=== PATIENT | female | born 1955 | race Two or more races ===

== ENCOUNTER 2021-08-25 18:20 | Emergency (ER) | payer SELFPAY ==
[~2021-08-25] VITALS: Ht 154.9 cm; Wt 83.8 kg
[~2021-08-25 18:20] MED LIST: OMEP20TA63 PO
[2021-08-25] MEDS ORDERED: IV NORMAL SALINE 1000ML BAG 1,000 ML IV SCH (18:45)
[2021-08-25] MEDS ORDERED: ONDANSETRON PF 4 MG/2 ML VIAL. IVP ONE (19:00)
[2021-08-25] MEDS ORDERED: fentaNYL PF VIAL 100 MCG/2 ML VIAL IVP ONE (19:00)
[2021-08-25] MEDS ORDERED: FAMOTIDINE 20 MG/2 ML VIAL IVP ONE (19:00)
--- NOTE | 2021-08-25 19:10 | PHYS DOC ---
Past Medical History Past Medical History: High Cholesterol, Hypertension Past Surgical History: No Surgical History Smoking Status: Never Smoker Alcohol Use: None General Adult EDM: Chief Complaint: ABDOMINAL PAIN HPI: HPI: Patient is a 65 year old female with history of hypertension, high cholesterol, who presents the ED today complaining of 8 out of 10 right upper quadrant abdominal pain intermittently for 6 months. Patient states she has been evaluat ed before for this pain at [facility] and was told she has stones. 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 Reports occasional nausea and vomiting. Reports being on some medicine for UTI which she has been taking for months (Macrodantin). Denies any fever. Denies any back pain. Denies any chest pain or shortness of breath. States the pain is worse when she is ambulating. Review of Systems: Review of Systems: Constitutional: Denies fever or chills. [] Eyes: Denies change in visual acuity. [] HENT: Denies nasal congestion or sore throat. [] Respiratory: Denies cough or shortness of breath. [] Cardiovascular: Denies chest pain or edema. [] GI: Reports right upper quadrant abdominal pain with intermittent episodes of nausea and vomiting, denies bloody stools or diarrhea. [] : Denies dysuria. [] Musculoskeletal: Denies back pain or joint pain. [] Integument: Denies rash. [] Neurologic: Denies headache, focal weakness or sensory changes. [] ] Psychiatric: Denies depression or anxiety. [] Heart Score: C/O Chest Pain: N/A Risk Factors: Risk Factors: DM, Current or recent (<one month) smoker, HTN, HLP, family history of CAD, obesity. Risk Scores: Score 0 - 3: 2.5% MACE over next 6 weeks - Discharge Home Score 4 - 6: 20.3% MACE over next 6 weeks - Admit for Clinical Observation Score 7 - 10: 72.7% MACE over next 6 weeks - Early Invasive Strategies Current Medications: Current Medications Medications (Trade) Dose Ordered Sig/Price Start Time Stop Time Status Last Admin Dose Admin Famotidine (Pepcid Vial) 20 mg 1X ONCE 08/25/21 19:00 08/25/21 19:03 DC Fentanyl Citrate (Fentanyl 2ml Vial) 50 mcg 1X ONCE 08/25/21 19:00 08/25/21 19:03 DC Ondansetron HCl (Zofran) 4 mg 1X ONCE 08/25/21 19:00 08/25/21 19:03 DC Sodium Chloride 1,000 ml @ 1,000 mls/hr Q1H 08/25/21 18:45 08/25/21 18:42 DC Allergies: Allergies: Allergies Coded Allergies Type Severity Reaction Last Updated Verified No Known Drug Allergies 02/01/21 No Physical Exam: PE: Constitutional: Well developed, well nourished, no acute distress, non-toxic appearance. [] HENT: Normocephalic, atraumatic, bilateral external ears normal, oropharynx moist, no oral exudates, nose normal. [] Eyes: PERRLA, EOMI, conjunctiva normal, no discharge. [] Neck: Normal range of motion, no tenderness, supple, no stridor. [] Cardiovascular:Heart rate regular rhythm, no murmur [] Lungs & Thorax: Bilateral breath sounds clear to auscultation [] Abdomen: Bowel sounds normal, soft, mild right upper quadrant tenderness with negative Weston sign, no right lower quadrant tenderness, no masses, no pulsatile masses. [] Skin: Warm, dry, no erythema, no rash. [] Back: No tenderness, no CVA tenderness. [] Extremities: No tenderness, no cyanosis, no clubbing, ROM intact, no edema. [] Neurologic: Alert and oriented X 3, normal motor function, normal sensory function, no focal deficits noted. [] Psychologic: Affect normal, judgement normal, mood normal. [] EKG: EKG: [] Radiology/Procedures: Radiology/Procedures: []PROCEDURE: ABDOMEN LTD STUDY: US ABDOMEN LIMITED INDICATION: Right upper quadrant pain. COMPARISON: Same day CT.. TECHNIQUE: Limited abdominal ultrasound targeted at the right upper quadrant. Findings: Postprandial configuration the gallbladder which limits assessment. Possible gallstones but potentially artifact. Within normal limits size and echogenicity of the liver measuring 15.7 cm longitudinal. Limited evaluation of the pancreas secondary to bowel gas. Within normal limits common duct at 0.4 cm. The right kidney measures 9.2 cm in length. No hydronephrosis. Patent main portal vein with normal flow direction. Unremarkable IVC at the liver. Impression: 1. Incompletely assessed gallbladder secondary to a postprandial state with luminal collapse. There may be gallstones but difficult to confirm. Nondilated common duct. 2. Within normal limits liver and right kidney. Limited assessment of the pancreas secondary to bowel gas. Electronically signed by: DAKOTA BIRMINGHAM MD (08/25/2021 8:11 PM) [facility] DICTATED and SIGNED BY: DAKOTA BIRMINGHAM MD DATE: 08/25/[id number] 0 PROCEDURE: CT ABDOMEN PELVIS WO CONTRAST Exam: CT of abdomen and pelvis without contrast INDICATION: Right upper quadrant pain TECHNIQUE: Sequential axial images through the abdomen and pelvis obtained without IV contrast. Sagittal and coronal reformatted images were reconstructed from the axial data and reviewed. Exposure: One or more of the following in the visualized dose reduction techniques were utilized for this examination: 1. Automated exposure control 2. Adjustment of the MA and/or KV according to patient size 3. Use of iterative of reconstructive technique Comparisons: 02/01/2021 FINDINGS: Heart size is normal. No pericardial visualized lung bases are clear. Visualized lung bases are clear. No pleural effusion. Evaluation of solid organs limited secondary to noncontrast technique. Liver, spleen, pancreas and adrenals are unremarkable. Gallbladder is decompressed. No perinephric inflammation or hydronephrosis. No renal or ureteral calculi are identified. Bladder is partially distended and not well evaluated. Uterus is not enlarged. No abnormal adnexal mass. Moderate amount stool is noted throughout the colon. Appendix is normal. No free abdominal air or fluid. No obstruction. Abdominal aorta has normal course and caliber. No enlarged intra-abdominal lymph nodes are identified. No suspicious osseous lesions or acute fractures. IMPRESSION: No acute process identified within the abdomen or pelvis. Electronically signed by: Kaleigh Barraza MD (08/25/2021 7:47 PM) [facility]ablox[facility]andra DICTATED and SIGNED BY: KALEIGH BARRAZA MD DATE: 08/25/[id number] 0 Course & Med Decision Making: Course & Med Decision Making Pertinent Labs and Imaging studies reviewed. (See chart for details) This is a 65-year-old female patient presenting to the ED today with right upper quadrant abdominal pain with intermittent episodes of nausea and vomiting, symptoms for 6 months. CBC, CMP with no acute findings, UA noted for trace amount of leukocytes, 5-10 WBCs, no nitrites patient states she is on Macrodantin for UTI. CT of the abdomen and pelvis was noted for possible gallstones. Provided general surgery for follow-up. Discharged home Maryanne Disclaimer: Maryanne Disclaimer: This electronic medical record was generated, in whole or in part, using a voice recognition dictation system. Departure Departure Impression: Primary Impression: Cholelithiasis Qualified Codes: K80.20 - Calculus of gallbladder without cholecystitis without obstruction Disposition: HOME / SELF CARE / HOMELESS Condition: STABLE Referrals: UNKNOWN PCP NAME (PCP) MAULIK GOULD MD Please call his office tomorrow and set up a follow-up appointment in the clinic Patient Instructions: Cholelithiasis, [id number] Additional Instructions: You were evaluated in the emergency room and noted to have gallstones. This needs to be followed up with a general surgeon we provided you. Please call the office tomorrow and set up a follow-up appointment in the clinic. You can take the pain medicine prescribed as needed for your pain. Scripts Hydrocodone Bit/Acetaminophen (HYDROCODONE-APAP 5-325 ) 1 Tab Tablet 1 TAB PO PRN Q6HRS PRN for PAIN, #14 TAB 0 Refills Prov: JORDYN KOHLER [employer]LLER [employer]INT [employer]ENDER 08/25/21 Ondansetron (ONDANSETRON ODT) 4 Mg Tab.rapdis 1 TAB PO PRN Q6-8HRS, #16 TAB Prov: JORDYN KOHLER [employer]ER PRINT TENDER 08/25/21 JORDYN KOHLER [employer]ER PRINT TENDER Aug 25, 2021 19:10
[2021-08-25 19:38] LABS: BILIRUBIN,URINE NEGATIVE (NEG); CLARITY,URINE CLEAR; COLOR,URINE YELLOW; NITRITE,URINE NEGATIVE (NEG); PROTEIN,URINE NEGATIVE (NEG-TRACE); UROBILINOGEN,URINE 0.2 mg/dL (0.2 mg/dL)
[2021-08-25 19:44] LABS: BARBITURATES NEG (NEG); BENZODIAZEPINES NEG (NEG); CANNABINOIDS NEG (NEG); COCAINE NEG (NEG); METHADONE NEG (NEG); OPIATES NEG (NEG); PHENCYCLIDINE NEG (NEG)
[2021-08-25 19:45] LABS: AMPHETAMINE/METHAMPHETAMINE NEG (NEG); BACTERIA,URINE FEW /HPF (0-FEW)
[2021-08-25 19:47] LABS: BASO % 1 % (0-3); EOS # 0.1 x10^3/uL (0.0-0.7); EOS % 2 % (0-3); HEMATOCRIT 40.3 % (36.0-47.0); HEMOGLOBIN 13.4 g/dL (12.0-15.5); LYMPH # 2.6 x10^3/uL (1.0-4.8); LYMPH % 39 % (24-48); MEAN CORPUSCULAR HEMOGLOBIN 30 pg (25-35); MEAN CORPUSCULAR HGB CONC 33 g/dL (31-37); MEAN CORPUSCULAR VOLUME 90 fL (79-100); MONO # 0.5 x10^3/uL (0.0-1.1); MONO % 8 % (0-9); NEUT # 3.4 x10^3/uL (1.8-7.7); NEUT % 50 % (31-73); PLATELET COUNT 217 x10^3/uL (140-400); RED CELL DISTRIBUTION WIDTH 13.7 % (11.5-14.5); WHITE BLOOD COUNT 6.7 x10^3/uL (4.0-11.0)
--- NOTE | 2021-08-25 19:49 | RAD ---
Exam: CT of abdomen and pelvis without contrast INDICATION: Right upper quadrant pain TECHNIQUE: Sequential axial images through the abdomen and pelvis obtained without IV contrast. Sagit gerda and coronal reformatted images were reconstructed from the axial data and reviewed. Exposure: One or more of the following in the visualized dose reduction techniques were utilized for this examination: 1. Automated exposure control 2. Adjustment of the MA and/or KV according to patient size 3. Use of iterative of reconstructive technique Comparisons: 02/01/2021 FINDINGS: Heart size is normal. No pericardial visualized lung bases are clear. Visualized lung bases are clear . No pleural effusion. Evaluation of solid organs limited secondary to noncontrast technique. Liver, spleen, pancreas and adrenals are unremarkable. Gallbladder is decompressed. No perinephric inflammation or hydronephrosis. No renal or ureteral calculi are identified. Bladder is partially distended and not well evaluated. Uterus is not enlarged. No abnormal adnexal ma ss. Moderate amount stool is noted throughout the colon. Appendix is normal. No free abdominal air or flu id. No obstruction. Abdominal aorta has normal course and caliber. No enlarged intra-abdominal lymph nodes are identified. No suspicious osseous lesions or acute fractures. IMPRESSION: No acute process identified within the abdomen or pelvis. Electronically signed by: Kaleigh Cooley MD (08/25/2021 7:47 PM) [facility]
[2021-08-25 19:59] LABS: CALCIUM 8.5 mg/dL (8.5-10.1); CREATININE 0.6 mg/dL (0.6-1.0); POTASSIUM 4.1 mmol/L (3.5-5.1)
[2021-08-25 20:05] LABS: ALBUMIN 3.6 g/dL (3.4-5.0); TOTAL BILIRUBIN 0.3 mg/dL (0.2-1.0); TOTAL PROTEIN 7.3 g/dL (6.4-8.2)
--- NOTE | 2021-08-25 20:13 | RAD ---
STUDY: US ABDOMEN LIMITED INDICATION: Right upper quadrant pain. COMPARISON: Same day CT.. TECHNIQUE: Limited abdominal ultrasound targeted at the right upper quadrant. Findings: Postprandial configuration the gallbladder which limits assessment. Possible gallstones but potential ly artifact. Within normal limits size and echogenicity of the liver measuring 15.7 cm longitudinal. Limited evalu ation of the pancreas secondary to bowel gas. Within normal limits common duct at 0.4 cm. The right kidney measures 9.2 cm in length. No hydronephrosis. Patent main portal vein with normal flow direction. Unremarkable IVC at the liver. Impression: 1. Incompletely assessed gallbladder secondary to a postprandial state with luminal collapse. There may be gallstones but difficult to confirm. Nondilated common duct. 2. Within normal limits liver and right kidney. Limited assessment of the pancreas secondary to alejandro l gas. Electronically signed by: DAKOTA BIRMINGHAM MD (08/25/2021 8:11 PM) [facility]
[2021-08-25] MEDS ORDERED: HYDR-2761 PO (20:23)
[2021-08-25] MEDS ORDERED: ONDA4TAB12 PO (20:23)
[2021-08-25 20:50] VITALS: BP 165/78
== END 2021-08-25 20:53 | disposition home or self-care (01) ==
LOC: ER 18:20
DX: K80.20 Calculus of gallbladder without cholecystitis without obstruction (principal); I10 Essential (primary) hypertension; E78.00 Pure hypercholesterolemia, unspecified
CPT/HCPCS: 36415; 74176; 76705; 80053; 80307; 81001; 83690; 85025; 87086; 96374; 96375; 99284; G0480; J2405; J3010; J3490

== ENCOUNTER 2021-09-23 11:40 | Day surgery (SDC) | payer SELFPAY ==
[~2021-09-23] VITALS: Ht 152.4 cm; Wt 83.1 kg
[~2021-09-23 11:40] MED LIST changes: +ACETAMINOPHEN 500 MG TABLET PO PRN; +HYDR-2761 PO; +HYDROmorphone 2 MG/ML INJ. IVP PRN; +IV RINGERS,LACTATED 1000ML 1,000 ML IV SCH; +NITR100C63 PO; +ONDA4TAB12 PO; +PROCHLORPERAZINE 10 MG/2 ML VIAL. IVP PRN; +fentaNYL PF VIAL 100 MCG/2 ML VIAL IVP PRN
[2021-09-23 12:30] VITALS: BP 162/66
[2021-09-23] MEDS ORDERED: SURGICEL HEMOSTAT 4X8 EACH. ONE (12:33)
[2021-09-23] MEDS ORDERED: BUPIVACAINE-EPI 0.25%-1:200000 MPF 30 ML VIAL. ONE (12:33)
[2021-09-23] MEDS ORDERED: IOHEXOL 300 MG/ML 50 ML VIAL. ONE (12:33)
[2021-09-23] MEDS ORDERED: SUGAMMADEX SODIUM 200 MG/2 ML VIAL. IVP ONE (13:15)
[2021-09-23] MEDS ORDERED: ONDANSETRON PF 4 MG/2 ML VIAL. ONE (13:21)
[2021-09-23] MEDS ORDERED: DEXAMETHASONE SOD PHOS 4 MG/ML VIAL ONE (13:21)
[2021-09-23] MEDS ORDERED: LIDOCAINE 1% PF 5 ML VIAL. ONE (13:21)
[2021-09-23] MEDS ORDERED: PROPOFOL 10 MG/ML (20ML) VIAL. IV ONE (13:21)
[2021-09-23] MEDS ORDERED: ROCURONIUM 50 MG/5 ML VIAL. ONE (13:21)
[2021-09-23] MEDS ORDERED: GLYCOPYRROLATE 1 MG/5 ML VIAL. ONE (13:29)
[2021-09-23] MEDS ORDERED: fentaNYL PF VIAL 100 MCG/2 ML VIAL ONE ×2 (13:35→13:59)
--- NOTE | 2021-09-23 13:46 | PDOC4 ---
Operative Note Operative Note Date: September 232021 at 1:44 PM Preoperative diagnosis: Chronic cholecystitis cholelithiasis Postoperative diagnosis: Same Procedure: Laparoscopic cholecystectomy with fluorescein cholangiography Surgeon: Marcin Specimen: Gallbladder Assistant Professor In Family Studies: None Dictation: Patient is a 65-year-old female with right upper quadrant abdominal pain and ultrasound showing gallstones. Procedure of laparoscopic cholecystectomy was explained to the patient detail through fruit bar maker all risk benefits were also discussed occluding bleeding infection injury to intra- abdominal contents possible necessitating further open operations alternatives to this procedure also discussed with the patient who seemed to understand and gave a verbal written consent to have the procedure performed. Patient was taken to the operating room placed in the supine position general anesthesia was initiated once patient was sleeping intubated her abdomen was prepped and draped usual sterile fashion using ChloraPrep. An area just below the umbilicus inject quarter percent Marcaine with epinephrine incision was made 11 blade scalpel and varies needle was placed within the abdomen creating pneumoperitoneum once this was complete the millimeter port was placed and a 5 mm camera is placed within the abdomen no other abnormalities were noted. 5 mm port was placed in the epigastrium a 5 mm port was placed in the right midabdomen a 5 mm port was placed in the right lateral abdomen all under direct visualization. The dome of the gallbladder is grasped directed cephalad the infundibulum the gallbladder is grasped tract and laterally exposing the triangle adherent tissues the triangle were taken down exposing the cystic duct and cystic artery fluorescing cholangiography showed good contrast within the gallbladder cystic duct and flowing into the common bile duct without evidence of obstruction. The cystic duct was doubly clipped and transected the cystic artery was doubly clipped and transected the gallbladder is taken off the liver with hook electrocautery placed in Endo Catch bag and roof the umbilicus right upper quadrant was irrigated and suctioned dry hemostasis deemed be appropriate the pneumoperitoneum was reduced all ports were removed the fascial defect at the umbilicus was closed with a [id number] 0 Vicryl suture and the skin was reapproximated all port sites for subcuticular Monocryl Mastisol Steri-Strips and island dressings were applied. Patient was awakened extubated in the opera ting room taken recovery in stable condition all sponge instrument needle counts listed as correct estimated blood loss 10 mL MAULIK GOULD MD Sep 23, 2021 13:46
[2021-09-23] MEDS ORDERED: OXYC1TAB15 PO (13:48)
--- NOTE | 2021-09-23 13:50 | DISCH ---
DISCHARGE INSTRUCTIONS Condition on Discharge Condition on Discharge: Stable Activity After Discharge Activity Instructions for Disc: Activity as tolerated Other activity instructions: No lifting more than 20 pounds for 2 weeks Diet after Discharge Diet after Discharge: Low Fat Wound Incision Care Other wound/incision instructi: Anna shower in 24-hour Contacting the DRChristoph after DC Call your doctor for: If your condition worsens Follow-Up Follow up with: Dr. Gould in 2 weeks Treatment/Equipment after DC Adaptive Equipment Issued: None MAULIK GOULD MD Sep 23, 2021 13:50
[2021-09-23] MEDS ORDERED: MORPHINE SULFATE 2 MG/ML INJ. ONE (13:59)
[2021-09-23] MEDS ORDERED: PROCHLORPERAZINE 10 MG/2 ML VIAL. ONE (13:59)
[2021-09-23] MEDS: fentaNYL PF VIAL 100 MCG/2 ML VIAL IVP PRN ×2 (14:05→14:15)
[2021-09-23] MEDS: MORPHINE SULFATE 2 MG/ML INJ. IVP PRN ×2 (14:07→14:18)
[2021-09-23] MEDS ORDERED: oxyCODONE/APAP 5/325 1 TAB TABLET PO ONE (14:30)
[2021-09-23 14:44] VITALS: BP 155/79
== END 2021-09-23 15:20 | disposition home or self-care (01) ==
LOC: SURG 11:40
PROVIDERS: ATTEND Surgery
DX: K80.10 Calculus of gallbladder with chronic cholecystitis without obstruction (principal); I10 Essential (primary) hypertension; E78.00 Pure hypercholesterolemia, unspecified; Z79.899 Other long term (current) drug therapy; Z98.890 Other specified postprocedural states; Z87.440 Personal history of urinary (tract) infections
CPT/HCPCS: 47563; J0690; J0780; J1100; J2270; J2405; J2704; J3010; J3490; Q9967; A4364; A4452; A4657; A4930; A6219